=== PATIENT | female | born 1930 | race Caucasian/White ===

== ENCOUNTER 2016-03-19 19:40 | Inpatient (IN) | payer MEDICARE ==
[~2016-03-19] VITALS: Ht 157.5 cm; Wt 34.0 kg
[~2016-03-19 19:40] MED LIST: ACET-868 PO; ANAS1TAB8 PO; ASPI-605 PO; CLON0.5T4 PO; PANT40TA4 PO
[2016-03-19 20:36] LABS: BASOPHILS # (AUTO) 0.4 /CMM (0.0-0.2); BASOPHILS % (AUTO) 4.3 % (0.0-2.0); DIFF TOTAL % 100 %; EOSINOPHILS # (AUTO) 0.3 /CMM (0.0-0.7); EOSINOPHILS % (AUTO) 2.6 % (0.0-6.0); HEMATOCRIT 38 % (33-45); HEMOGLOBIN 12.7 g/dL (11.5-14.8); LYMPHOCYTES # (AUTO) 1.2 /CMM (0.8-4.8); LYMPHOCYTES % (AUTO) 12.7 % (20.0-44.0); MEAN CORPUSCULAR HEMOGLOBIN 30 PG (26.0-33.0); MEAN CORPUSCULAR HGB CONC 33 g/dl (31.0-36.0); MEAN CORPUSCULAR VOLUME 90 fL (82-100); MONOCYTES # (AUTO) 0.9 /CMM (0.1-1.30); MONOCYTES % (AUTO) 9.4 % (2.0-12.0); NEUTROPHILS # (AUTO) 6.9 /CMM (1.8-8.9); PLATELET COUNT (AUTO) 369 /CMM (150-450); RED BLOOD CELL COUNT(AUTO) 4.25 MIL/uL (4.0-5.2); WHITE BLOOD COUNT (AUTO) 9.7 K/uL (4.3-11.0)
[2016-03-19 20:41] LABS: KETONES,URINE Trace (NEGATIVE); LEUKOCYTE ESTERASE ,URINE Small (NEGATIVE); PH,URINE 5.5 (5.0-8.0)
[2016-03-19 21:01] LABS: CANNABINOID, URINE NEGATIVE (NEGATIVE); PHENCYCLIDINE SCREEN,URINE NEGATIVE (NEGATIVE)
[2016-03-19 21:02] LABS: ADD UA MICROSCOPIC YES
[2016-03-19 21:09] LABS: ALANINE AMINOTRANSFERASE 34 U/L (12-78); ALBUMIN 3.1 g/dL (3.4-5.0); ANION GAP 15 (5-14); ASPARTATE AMINOTRANSFERASE 32 U/L (15-37); BILIRUBIN,DIRECT 0.1 mg/dL (0.0-0.2); BILIRUBIN,TOTAL 0.3 mg/dL (0.2-1.0); CALCIUM, SERUM 8.8 mg/dL (8.5-10.1); CARBON DIOXIDE 26 mmol/L (21-32); CHLORIDE 107 mmol/L (98-107); CREATININE 0.9 mg/dL (0.6-1.3); GLUCOSE 116 mg/dL (74-106); INDIRECT BILIRUBIN 0.2 mg/dL (0.0-1.1); POTASSIUM 4.8 mmol/L (3.5-5.1); SODIUM SERUM 143 mmol/L (136-145); TOTAL PROTEIN, SERUM 6.8 g/dL (6.4-8.2); UREA NITROGEN, BLOOD 27 mg/dL (7-18)
[2016-03-19 21:10] LABS: ACETAMINOPHEN 0 ug/ml (10-30); SALICYLATE 1.7 mg/dL (2.8-20.0)
[2016-03-19 21:33] LABS: ADD URINE CULTURE NO; RBC,URINE 0-2 /HPF (0-2)
[2016-03-19 22:31] VITALS: BP 139/77
[2016-03-19] MEDS ORDERED: MAGNESIUM HYDROXIDE 30 ML UDC PO PRN (23:00)
[2016-03-19] MEDS ORDERED: LORAZEPAM 0.5 MG TABLET PO PRN (23:00)
[2016-03-19] MEDS ORDERED: MAG HYDROX/AL HYDROX/SIMETH 30 ML UDC PO PRN (23:00)
[2016-03-19] MEDS ORDERED: BUSP15TA3 PO (23:04)
[2016-03-19] MEDS ORDERED: AMLO2.5T PO (23:04)
[2016-03-19] MEDS ORDERED: ARIP5TAB4 PO (23:32)
[2016-03-19] MEDS ORDERED: DIAZ5TAB4 PO (23:32)
[2016-03-19] MEDS ORDERED: MEGE400O PO (23:32)
[2016-03-19] MEDS ORDERED: NICO1PAT11 TP (23:32)
[2016-03-19] MEDS ORDERED: DIVA250T PO (23:32)
[2016-03-20] MEDS ORDERED: LEVOFLOXACIN (500MG) 500 MG TABLET PO SCH (01:30)
[2016-03-20 07:50] LABS: CREATININE 0.8 mg/dL (0.6-1.3)
[2016-03-20 08:51] VITALS: BP 165/76
[2016-03-20] MEDS ORDERED: LEVOFLOXACIN (500MG) 500 MG TABLET PO ONE (09:00)
[2016-03-20] MEDS: ASPIRIN EC 81 MG TABLET.DR PO SCH (09:23)
[2016-03-20] MEDS: AMLODIPINE BESYLATE 2.5 MG TABLET PO SCH ×2 (09:23→18:10)
[2016-03-20 10:00] VITALS: BP 123/62
[2016-03-20] MEDS: FLUTICASONE/SALMETEROL DISKUS IH SCH ×2 (12:37→18:15)
[2016-03-20] MEDS: predniSONE 20 MG TABLET PO SCH (12:38)
[2016-03-20 16:00] VITALS: BP 148/68
[2016-03-20] MEDS: QUETIAPINE FUMARATE 25 MG TABLET PO SCH (18:10)
[2016-03-20 20:00] VITALS: BP 116/55
[2016-03-20] MEDS: GABAPENTIN 100 MG CAPSULE PO SCH (21:28)
[2016-03-21 08:00] VITALS: BP 122/60
[2016-03-21] MEDS: LEVOFLOXACIN (250MG) 250 MG TABLET PO SCH (08:37)
[2016-03-21] MEDS: predniSONE 20 MG TABLET PO SCH (08:38)
[2016-03-21] MEDS: FLUTICASONE/SALMETEROL DISKUS IH SCH ×2 (08:38→16:55)
[2016-03-21] MEDS: QUETIAPINE FUMARATE 25 MG TABLET PO SCH ×2 (08:38→16:54)
[2016-03-21] MEDS: AMLODIPINE BESYLATE 2.5 MG TABLET PO SCH ×2 (08:38→16:54)
[2016-03-21] MEDS: ASPIRIN EC 81 MG TABLET.DR PO SCH (08:38)
[2016-03-21 16:00] VITALS: BP 143/57
[2016-03-21 20:00] VITALS: BP 115/51
[2016-03-21] MEDS: GABAPENTIN 100 MG CAPSULE PO SCH (21:47)
[2016-03-21] MEDS: TEMAZEPAM 7.5 MG CAPSULE PO PRN (21:47)
[2016-03-22 07:32] LABS: CHOLESTEROL 158 mg/dL (<200); HDL CHOLESTEROL 73 mg/dL (40-60); LDL 71 mg/dL (0-99); TRIGLYCERIDES 51 mg/dL (30-150)
[2016-03-22] MEDS: QUETIAPINE FUMARATE 25 MG TABLET PO SCH ×2 (08:32→16:52)
[2016-03-22] MEDS: NICOTINE PATCH (7MG) 7 MG PATCH.TD24 TD SCH (08:32)
[2016-03-22] MEDS: ASPIRIN EC 81 MG TABLET.DR PO SCH (08:32)
[2016-03-22] MEDS: LEVOFLOXACIN (250MG) 250 MG TABLET PO SCH (08:32)
[2016-03-22] MEDS: predniSONE 20 MG TABLET PO SCH (08:33)
[2016-03-22] MEDS: AMLODIPINE BESYLATE 2.5 MG TABLET PO SCH ×2 (08:33→16:52)
[2016-03-22] MEDS: FLUTICASONE/SALMETEROL DISKUS IH SCH ×2 (08:38→16:58)
[2016-03-22 09:01] VITALS: BP 112/68
[2016-03-22 15:50] VITALS: BP 122/59
[2016-03-22 20:00] VITALS: BP 127/96
[2016-03-22] MEDS: TEMAZEPAM 7.5 MG CAPSULE PO PRN (22:09)
[2016-03-22] MEDS: GABAPENTIN 100 MG CAPSULE PO SCH (22:09)
[2016-03-23 08:00] VITALS: BP 101/59
[2016-03-23] MEDS: AMLODIPINE BESYLATE 2.5 MG TABLET PO SCH ×2 (09:00→17:48)
[2016-03-23] MEDS: ASPIRIN EC 81 MG TABLET.DR PO SCH (09:57)
[2016-03-23] MEDS: FLUTICASONE/SALMETEROL DISKUS IH SCH ×2 (09:58→17:49)
[2016-03-23] MEDS: NICOTINE PATCH (7MG) 7 MG PATCH.TD24 TD SCH (09:58)
[2016-03-23] MEDS: QUETIAPINE FUMARATE 25 MG TABLET PO SCH ×2 (09:58→17:47)
[2016-03-23] MEDS: predniSONE 20 MG TABLET PO SCH (09:58)
[2016-03-23] MEDS: LEVOFLOXACIN (250MG) 250 MG TABLET PO SCH (09:58)
[2016-03-23] MEDS: ACETAMINOPHEN 325 MG TABLET PO PRN (13:23)
[2016-03-23 16:28] VITALS: BP 129/63
[2016-03-23 20:01] VITALS: BP 131/57
[2016-03-23] MEDS: TEMAZEPAM 7.5 MG CAPSULE PO PRN (21:19)
[2016-03-23] MEDS: GABAPENTIN 100 MG CAPSULE PO SCH (21:19)
[2016-03-24 08:00] VITALS: BP 117/86
[2016-03-24] MEDS: ASPIRIN EC 81 MG TABLET.DR PO SCH (08:28)
[2016-03-24] MEDS: AMLODIPINE BESYLATE 2.5 MG TABLET PO SCH ×3 (08:55→17:57)
[2016-03-24] MEDS: LEVOFLOXACIN (250MG) 250 MG TABLET PO SCH (08:56)
[2016-03-24] MEDS: QUETIAPINE FUMARATE 25 MG TABLET PO SCH ×2 (08:57→17:56)
[2016-03-24] MEDS: predniSONE 20 MG TABLET PO SCH (08:57)
[2016-03-24] MEDS: NICOTINE PATCH (7MG) 7 MG PATCH.TD24 TD SCH (08:59)
[2016-03-24] MEDS: FLUTICASONE/SALMETEROL DISKUS IH SCH ×2 (09:17→17:00)
[2016-03-24] MEDS: ACETAMINOPHEN 325 MG TABLET PO PRN ×2 (11:32→21:18)
[2016-03-24 16:00] VITALS: BP 132/82
[2016-03-24 20:33] VITALS: BP 138/63
[2016-03-24] MEDS: GABAPENTIN 100 MG CAPSULE PO SCH (21:20)
[2016-03-25 08:00] VITALS: BP 131/90
[2016-03-25] MEDS: NICOTINE PATCH (7MG) 7 MG PATCH.TD24 TD SCH (08:41)
[2016-03-25] MEDS: FLUTICASONE/SALMETEROL DISKUS IH SCH ×2 (08:42→18:38)
[2016-03-25] MEDS: ASPIRIN EC 81 MG TABLET.DR PO SCH (08:42)
[2016-03-25] MEDS: AMLODIPINE BESYLATE 2.5 MG TABLET PO SCH ×2 (08:42→17:00)
[2016-03-25] MEDS: LEVOFLOXACIN (250MG) 250 MG TABLET PO SCH (08:42)
[2016-03-25] MEDS: QUETIAPINE FUMARATE 25 MG TABLET PO SCH ×3 (08:43→21:42)
[2016-03-25] MEDS: ACETAMINOPHEN 325 MG TABLET PO PRN (08:57)
[2016-03-25] MEDS ORDERED: SERTRALINE HCL 25 MG TABLET PO SCH (12:30)
[2016-03-25] MEDS ORDERED: IPRATROPIUM NEB FS 0.5 MG/2.5 ML AMPUL.NEB NEB SCH (13:30)
[2016-03-25] MEDS: ALBUTEROL FS 2.5 MG/0.5 ML VIAL.NEB NEB SCH ×2 (15:04→19:23)
[2016-03-25 16:00] VITALS: BP 101/63
[2016-03-25 19:53] VITALS: BP 111/80
[2016-03-25] MEDS: GUAIFENESIN LA 600 MG TABLET.SA PO SCH (21:41)
[2016-03-25] MEDS: GABAPENTIN 100 MG CAPSULE PO SCH (21:42)
[2016-03-26] MEDS: ALBUTEROL FS 2.5 MG/0.5 ML VIAL.NEB NEB SCH ×4 (00:54→19:43)
[2016-03-26 08:00] VITALS: BP 138/55
[2016-03-26] MEDS: ASPIRIN EC 81 MG TABLET.DR PO SCH (09:08)
[2016-03-26] MEDS: AMLODIPINE BESYLATE 2.5 MG TABLET PO SCH ×3 (09:08→19:09)
[2016-03-26] MEDS: NICOTINE PATCH (7MG) 7 MG PATCH.TD24 TD SCH (09:08)
[2016-03-26] MEDS: LEVOFLOXACIN (250MG) 250 MG TABLET PO SCH (09:08)
[2016-03-26] MEDS: GUAIFENESIN LA 600 MG TABLET.SA PO SCH ×2 (09:08→20:27)
[2016-03-26] MEDS: QUETIAPINE FUMARATE 25 MG TABLET PO SCH ×3 (09:11→21:23)
[2016-03-26] MEDS: FLUTICASONE/SALMETEROL DISKUS IH SCH ×2 (09:11→16:55)
[2016-03-26] MEDS: HYDROCODONE/APAP 5/325MG 1 EACH TABLET PO PRN ×2 (13:25→19:33)
[2016-03-26 16:00] VITALS: BP 100/47
[2016-03-26 20:25] VITALS: BP 149/60
[2016-03-26] MEDS: GABAPENTIN 100 MG CAPSULE PO SCH (21:23)
[2016-03-26] MEDS: DONEPEZIL 5 MG TABLET PO SCH (21:24)
[2016-03-26] MEDS: TEMAZEPAM 7.5 MG CAPSULE PO PRN (22:39)
[2016-03-27] MEDS: ALBUTEROL FS 2.5 MG/0.5 ML VIAL.NEB NEB SCH ×4 (02:01→18:57)
[2016-03-27] MEDS: HYDROCODONE/APAP 5/325MG 1 EACH TABLET PO PRN ×3 (06:13→18:35)
[2016-03-27 08:00] VITALS: BP 156/77
[2016-03-27] MEDS: LEVOFLOXACIN (250MG) 250 MG TABLET PO SCH (08:31)
[2016-03-27] MEDS: ASPIRIN EC 81 MG TABLET.DR PO SCH (08:31)
[2016-03-27] MEDS: QUETIAPINE FUMARATE 25 MG TABLET PO SCH ×3 (08:34→21:36)
[2016-03-27] MEDS: FLUTICASONE/SALMETEROL DISKUS IH SCH ×2 (08:40→17:23)
[2016-03-27] MEDS: GUAIFENESIN LA 600 MG TABLET.SA PO SCH ×2 (09:00→21:36)
[2016-03-27] MEDS: AMLODIPINE BESYLATE 2.5 MG TABLET PO SCH ×2 (09:00→17:04)
[2016-03-27] MEDS: NICOTINE PATCH (7MG) 7 MG PATCH.TD24 TD SCH (09:00)
[2016-03-27 16:13] VITALS: BP 145/93
[2016-03-27 20:00] VITALS: BP 121/93
[2016-03-27] MEDS: DONEPEZIL 5 MG TABLET PO SCH (21:36)
[2016-03-27] MEDS: GABAPENTIN 100 MG CAPSULE PO SCH (21:37)
[2016-03-28] MEDS: ALBUTEROL FS 2.5 MG/0.5 ML VIAL.NEB NEB SCH ×2 (01:59→07:28)
[2016-03-28 08:00] VITALS: BP 162/80
[2016-03-28 08:01] LABS: BASOPHILS % (AUTO) 0.2 % (0.0-2.0); DIFF TOTAL % 100 %; EOSINOPHILS # (AUTO) 0.1 /CMM (0.0-0.7); EOSINOPHILS % (AUTO) 1.1 % (0.0-6.0); HEMATOCRIT 38 % (33-45); HEMOGLOBIN 12.7 g/dL (11.5-14.8); LYMPHOCYTES # (AUTO) 0.8 /CMM (0.8-4.8); LYMPHOCYTES % (AUTO) 9.8 % (20.0-44.0); MEAN CORPUSCULAR HEMOGLOBIN 30 PG (26.0-33.0); MEAN CORPUSCULAR HGB CONC 34 g/dl (31.0-36.0); MEAN CORPUSCULAR VOLUME 90 fL (82-100); MONOCYTES # (AUTO) 0.7 /CMM (0.1-1.30); MONOCYTES % (AUTO) 8.6 % (2.0-12.0); NEUTROPHILS # (AUTO) 6.5 /CMM (1.8-8.9); NEUTROPHILS % (AUTO) 80.3 % (43.0-81.0); PLATELET COUNT (AUTO) 352 /CMM (150-450); RED BLOOD CELL COUNT(AUTO) 4.19 MIL/uL (4.0-5.2); WHITE BLOOD COUNT (AUTO) 8.1 K/uL (4.3-11.0)
[2016-03-28 08:11] LABS: CALCIUM, SERUM 8.5 mg/dL (8.5-10.1); CREATININE 0.6 mg/dL (0.6-1.3); POTASSIUM 3.6 mmol/L (3.5-5.1)
[2016-03-28] MEDS: NICOTINE PATCH (7MG) 7 MG PATCH.TD24 TD SCH (08:54)
[2016-03-28] MEDS: ASPIRIN EC 81 MG TABLET.DR PO SCH (08:55)
[2016-03-28] MEDS: LEVOFLOXACIN (250MG) 250 MG TABLET PO SCH (08:55)
[2016-03-28] MEDS: GUAIFENESIN LA 600 MG TABLET.SA PO SCH ×2 (08:55→21:04)
[2016-03-28] MEDS: AMLODIPINE BESYLATE 2.5 MG TABLET PO SCH ×2 (08:55→17:55)
[2016-03-28] MEDS: QUETIAPINE FUMARATE 25 MG TABLET PO SCH ×3 (08:55→21:05)
[2016-03-28] MEDS: HYDROCODONE/APAP 5/325MG 1 EACH TABLET PO PRN (09:14)
[2016-03-28] MEDS: FLUTICASONE/SALMETEROL DISKUS IH SCH ×2 (09:20→17:56)
[2016-03-28] MEDS ORDERED: GABAPENTIN 100 MG CAPSULE PO ONE (10:00)
[2016-03-28 16:00] VITALS: BP 135/59
[2016-03-28 20:00] VITALS: BP 119/47
[2016-03-28] MEDS: DONEPEZIL 5 MG TABLET PO SCH (21:04)
[2016-03-28] MEDS: GABAPENTIN 100 MG CAPSULE PO SCH (21:04)
[2016-03-29] MEDS: ALBUTEROL FS 2.5 MG/0.5 ML VIAL.NEB NEB SCH ×2 (07:28→14:16)
[2016-03-29 08:00] VITALS: BP 120/80
[2016-03-29] MEDS: QUETIAPINE FUMARATE 25 MG TABLET PO SCH ×2 (08:37→12:54)
[2016-03-29] MEDS: ASPIRIN EC 81 MG TABLET.DR PO SCH (08:37)
[2016-03-29] MEDS: LEVOFLOXACIN (250MG) 250 MG TABLET PO SCH (08:37)
[2016-03-29] MEDS: GUAIFENESIN LA 600 MG TABLET.SA PO SCH (08:37)
[2016-03-29 08:38] VITALS: BP 120/80
[2016-03-29] MEDS: FLUTICASONE/SALMETEROL DISKUS IH SCH (08:38)
[2016-03-29] MEDS: NICOTINE PATCH (7MG) 7 MG PATCH.TD24 TD SCH (08:38)
[2016-03-29] MEDS: AMLODIPINE BESYLATE 2.5 MG TABLET PO SCH (08:38)
[2016-03-29] MEDS ORDERED: GABAPENTIN 100 MG CAPSULE PO SCH (09:00)
[2016-03-29] MEDS ORDERED: IPRATROPIUM NEB FS 0.5 MG/2.5 ML AMPUL.NEB NEB SCH (13:30)
[2016-03-29] MEDS: HYDROCODONE/APAP 5/325MG 1 EACH TABLET PO PRN (13:54)
== END 2016-03-29 16:30 | disposition home or self-care (01) | DRG 885 ==
LOC: ER 19:41 → GPS 21:49
PROVIDERS: ADMIT Psychiatry & Neurology Psychosomatic Medicine; ATTEND Nurse Practitioner Acute Care
DX: F29 Unspecified psychosis not due to a substance or known physiological condition (principal); I11.0 Hypertensive heart disease with heart failure; F41.9 Anxiety disorder, unspecified; F22 Delusional disorders; F39 Unspecified mood [affective] disorder; E78.5 Hyperlipidemia, unspecified; M19.90 Unspecified osteoarthritis, unspecified site; F17.210 Nicotine dependence, cigarettes, uncomplicated; J44.9 Chronic obstructive pulmonary disease, unspecified; F03.90 Unspecified dementia, unspecified severity, without behavioral disturbance, psychotic disturbance, mood disturbance, and anxiety; G89.29 Other chronic pain; I50.9 Heart failure, unspecified; K21.9 Gastro-esophageal reflux disease without esophagitis
CPT/HCPCS: 36415; 80048-TC; 80061-TC; 80076-TC; 80305; 81000-TC; 82565-TC; 85025-TC; 87081-TC; 92526; 92611-TC; A4606; G0480; G6039-TC; Z7610